=== PATIENT | male | born 1950 | race American Indian/Alaskan Native ===

== ENCOUNTER 2017-05-06 11:22 | Observation (INO) | payer MEDICARE ==
--- NOTE | 2017-05-06 13:06 | Emergency Department Report ---
Chief Complaint: Medical Clearance Stated Complaint: NEEDS A BLOOD TRANSFUSION Time Seen by Provider: 05/06/17 12:57 - HPI History of Present Illness: Pt is a 67 yo male who states he went a couple of days ago who stated he saw a Dr Burak Aponte who stated that his blood count is low and that he needed to get a blood transfusion. - ROS Review of Systems: ROS: other systems reviewed and neg except as noted per HPI - Exam Vital Signs: Vital Signs 05/06/17 11:25 Temperature 97.3 F L Pulse Rate 79 Respiratory 18 Rate Blood Pressure 129/78 O2 Sat by Pulse 100 Oximetry MSE screening note: Focused history and physical exam performed. Due to findings the following was ordered: Pt may need further management in the Ed by other subsequent providers as I provided a MSE exam . MD Elena ED Medical Decision Making - Lab Data Result diagrams: 05/07/17 13:23 05/07/17 13:23 ED Disposition for MSE Clinical Impression: Symptomatic anemia Disposition: DC-09 OP ADMIT IP TO THIS HOSP Condition: Stable
[2017-05-06 14:26] LABS: INR 1.06 (0.87-1.13)
[2017-05-06 14:35] LABS: Hematocrit 22.6 % (35.5-45.6); Hemoglobin 6.2 gm/dl (11.8-15.2); Mean Corpuscular HGB Conc 28 % (32-34); Mean Corpuscular Hemoglobin 13 pg (28-32); Mean Corpuscular Volume < 50 fl (84-94); Red Blood Count 4.64 M/mm3 (3.65-5.03); Red Cell Distribution Width 24.2 % (13.2-15.2)
[2017-05-06 14:54] LABS: BUN/Creatinine Ratio 12; Blood Urea Nitrogen 11 mg/dL (9-20); Calcium 9.5 mg/dL (8.4-10.2); Hemolysis Index 1
[2017-05-06 15:07] LABS: Basophils % (Manual) 0 % (0.0-1.8); Total Cells Counted 100
[2017-05-06 15:08] LABS: Anisocytosis 2+; Hypochromasia 2+; Poikilocytosis 2+
[2017-05-06 15:09] LABS: Acanthocytes Few; Schistocytes Few; Tear Drop Cells Few
[2017-05-06 15:10] LABS: Ovalocytes 1+
[2017-05-06 15:14] LABS: Burr Cells Rare
[2017-05-06 15:16] LABS: Target Cells 1+
[2017-05-06 15:23] LABS: Platelet Count 226 K/mm3 (140-440)
[2017-05-06 15:24] LABS: Basophils # (Auto) 0.1 K/mm3 (0.0-0.1); Basophils % (Auto) 3.1 % (0.0-1.8); Eosinophils # (Auto) 0.2 K/mm3 (0.0-0.4); Eosinophils % (Auto) 4.4 % (0.0-4.3); Lymphocytes # (Auto) 0.6 K/mm3 (1.2-5.4); Lymphocytes % (Auto) 14.1 % (13.4-35.0); Mean Platelet Volume 8.7 fl (6-12); Monocytes # (Auto) 0.5 K/mm3 (0.0-0.8); Monocytes % (Auto) 11.8 % (0.0-7.3)
[2017-05-06] MEDS ORDERED: NACL 0.9% 500 ML 500 ML IV ONE (20:15)
--- NOTE | 2017-05-06 20:20 | Emergency Department Report ---
HPI - General Chief Complaint: Medical Clearance Time Seen by Provider: 05/06/17 12:57 - HPI HPI: Room 7 The patient is a 67-year-old male presenting with a chief complaint of anemia. The patient states he had routine labs performed by his primary physician Dr. Aponte approximately 2-3 days ago. The patient was called yesterday and told to come to the hospital for blood transfusion. The patient states he was unable to come to the hospital yesterday but arrives today to receive his blood transfusion. The patient admits to having decreased energy and occasional shortness of breath/dyspnea on exertion for the past 4-5 months. Patient denies nausea/vomiting or chest pain. Patient denies bright red blood per rectum or melena. Location: Heme system Duration: [See above] Quality: Fatigue Severity: Moderate Modifying factors: [see above] Context: [see above] Mode of transportation: [not driving] ED Past Medical Hx - Past Medical History Hx Asthma: Yes - Surgical History Past Surgical History?: No - Family History Family history: no significant - Social History Smoking Status: Never Smoker Substance Use Type: None (denies illicit drug use) - Medications Home Medications: Home Medications Medication Instructions Recorded Confirmed Last Taken Type ALBUTEROL Inhaler [ProAir HFA 2 puff IH QID PRN #1 inhalation 04/05/16 Unknown Rx Inhaler] Fluticasone/Salmeterol [Advair 1 each IH BID #1 blst.w.dev 04/05/16 Unknown Rx 250-50 Diskus] ED Review of Systems ROS: Stated complaint: NEEDS A BLOOD TRANSFUSION Other details as noted in HPI Constitutional: malaise Respiratory: shortness of breath, SOB with exertion Cardiovascular: denies: chest pain Gastrointestinal: denies: abdominal pain, nausea, vomiting, melena, hematochezia Physical Exam - Physical Exam Vital Signs: Vital Signs 05/06/17 11:25 Temperature 97.3 F L Pulse Rate 79 Respiratory 18 Rate Blood Pressure 129/78 O2 Sat by Pulse 100 Oximetry Physical Exam: GENERAL: The patient is well-developed well-nourished male sitting on stretcher not appearing to be in acute distress. [] HEENT: Normocephalic. Patient has an approximately 8 cm diameter region of fluctuance to the left and poor region which she states has been there for 1 year. Extraocular motions are intact. Patient has moist mucous membranes. NECK: Supple. Trachea midline CHEST/LUNGS: Clear to auscultation. There is no respiratory distress noted. HEART/CARDIOVASCULAR: Regular. There is no tachycardia. There is no gallop rub or murmur. ABDOMEN: Abdomen is soft, nontender. Patient has normal bowel sounds. There is no abdominal distention. SKIN: There is no rash. There is no edema. There is no diaphoresis. NEURO: The patient is awake, alert, and oriented. The patient is cooperative. The patient has normal speech MUSCULOSKELETAL: There is no evidence of acute injury. RECTAL: Brown stool guaiac negative ED Course Vital Signs 05/06/17 11:25 Temperature 97.3 F L Pulse Rate 79 Respiratory 18 Rate Blood Pressure 129/78 O2 Sat by Pulse 100 Oximetry ED Medical Decision Making - Lab Data Result diagrams: 05/06/17 13:48 05/06/17 13:48 Laboratory Tests 05/06/17 05/06/17 05/06/17 13:48 13:48 13:48 WBC 4.2 L RBC 4.64 Hgb 6.2 L Hct 22.6 L MCV < 50 L MCH 13 L MCHC 28 L RDW 24.2 H Plt Count 226 Lymph % (Auto) 14.1 [place] % (Auto) 11.8 H Eos % (Auto) 4.4 H Baso % (Auto) 3.1 H Lymph # 0.6 L [place] # 0.5 Eos # 0.2 Baso # 0.1 Add Manual Diff Complete Total Counted 100 Seg Neutrophils % 66.6 Seg Neuts % (Manual) 67.0 Band Neutrophils % 0 Lymphocytes % (Manual) 23.0 Reactive Lymphs % (Man) 0 Monocytes % (Manual) 9.0 H Eosinophils % (Manual) 1.0 Basophils % (Manual) 0 Metamyelocytes % 0 Myelocytes % 0 Promyelocytes % 0 Blast Cells % 0 Nucleated RBC % Not Reportable Seg Neutrophils # 2.8 Seg Neutrophils # Man 2.8 Band Neutrophils # 0.0 Lymphocytes # (Manual) 1.0 L Abs React Lymphs (Man) 0.0 Monocytes # (Manual) 0.4 Eosinophils # (Manual) 0.0 Basophils # (Manual) 0.0 Metamyelocytes # 0.0 Myelocytes # 0.0 Promyelocytes # 0.0 Blast Cells # 0.0 WBC Morphology Not Reportable Hypersegmented Neuts Not Reportable Hyposegmented Neuts Not Reportable Hypogranular Neuts Not Reportable Smudge Cells Not Reportable Toxic Granulation Not Reportable Toxic Vacuolation Not Reportable Dohle Bodies Not Reportable Pelger-Huet Anomaly Not Reportable Marixa Rods Not Reportable Platelet Estimate Appears normal Clumped Platelets Not Reportable Plt Clumps, EDTA Not Reportable Large Platelets Not Reportable Giant Platelets Not Reportable Platelet Satelliting Not Reportable Plt Morphology Comment Not Reportable RBC Morphology Not Reportable Dimorphic RBCs Not Reportable Polychromasia Not Reportable Hypochromasia 2+ Poikilocytosis 2+ Anisocytosis 2+ Microcytosis 2+ Macrocytosis Not Reportable Spherocytes Not Reportable Pappenheimer Bodies Not Reportable Sickle Cells Not Reportable Target Cells 1+ Tear Drop Cells Few Ovalocytes 1+ Helmet Cells Not Reportable [place] Bodies Not Reportable [place] Rings Not Reportable [place]la Cells Rare Bite Cells Not Reportable Crenated Cell Not Reportable Elliptocytes Few Acanthocytes (Spur) Few Rouleaux Not Reportable Hemoglobin C Crystals Not Reportable Schistocytes Few Malaria parasites Not Reportable Jimbo Bodies Not Reportable Hem Pathologist Commnt No PT INR APTT Sodium 134 L Potassium 4.1 Chloride 94.7 L Carbon Dioxide 24 Anion Gap 19 BUN 11 Creatinine 0.9 Estimated GFR > 60 BUN/Creatinine Ratio 12 Glucose 98 Calcium 9.5 Blood Type A POSITIVE Antibody Screen Negative Crossmatch See Detail 05/06/17 13:48 WBC RBC Hgb Hct MCV MCH MCHC RDW Plt Count Lymph % (Auto) [place] % (Auto) Eos % (Auto) Baso % (Auto) Lymph # [place] # Eos # Baso # Add Manual Diff Total Counted Seg Neutrophils % Seg Neuts % (Manual) Band Neutrophils % Lymphocytes % (Manual) Reactive Lymphs % (Man) Monocytes % (Manual) Eosinophils % (Manual) Basophils % (Manual) Metamyelocytes % Myelocytes % Promyelocytes % Blast Cells % Nucleated RBC % Seg Neutrophils # Seg Neutrophils # Man Band Neutrophils # Lymphocytes # (Manual) Abs React Lymphs (Man) Monocytes # (Manual) Eosinophils # (Manual) Basophils # (Manual) Metamyelocytes # Myelocytes # Promyelocytes # Blast Cells # WBC Morphology Hypersegmented Neuts Hyposegmented Neuts Hypogranular Neuts Smudge Cells Toxic Granulation Toxic Vacuolation Dohle Bodies Pelger-Huet Anomaly Marixa Rods Platelet Estimate Clumped Platelets Plt Clumps, EDTA Large Platelets Giant Platelets Platelet Satelliting Plt Morphology Comment RBC Morphology Dimorphic RBCs Polychromasia Hypochromasia Poikilocytosis Anisocytosis Microcytosis Macrocytosis Spherocytes Pappenheimer Bodies Sickle Cells Target Cells Tear Drop Cells Ovalocytes Helmet Cells [place] Bodies Ransom Rings Shahla Cells Bite Cells Crenated Cell Elliptocytes Acanthocytes (Spur) Rouleaux Hemoglobin C Crystals Schistocytes Malaria parasites Jimbo Bodies Hem Pathologist Commnt PT 14.3 INR 1.06 APTT 31.0 Sodium Potassium Chloride Carbon Dioxide Anion Gap BUN Creatinine Estimated GFR BUN/Creatinine Ratio Glucose Calcium Blood Type Antibody Screen Crossmatch - Differential Diagnosis GI bleed, symptomatic anemia, Critical care attestation.: If time is entered above; I have spent that time in minutes in the direct care of this critically ill patient, excluding procedure time. ED Disposition Clinical Impression: Symptomatic anemia Disposition: 09 OP ADMIT IP TO THIS HOSP Is pt being admited?: Yes Does the pt Need Aspirin: No Condition: Fair Referrals: PRIMARY CARE, [Primary Care Provider] - 3-5 Days Time of Disposition: 20:20 (awaiting hospitalist)
[2017-05-06] MEDS ORDERED: MILK OF MAGNESIA PO PRN (21:58)
[2017-05-06] MEDS ORDERED: DULCOLAX PR PRN (21:58)
[2017-05-06] MEDS ORDERED: PERCOCET 5/325 PO PRN (21:58)
[2017-05-06] MEDS ORDERED: BENADRYL IV PRN (21:58)
[2017-05-06] MEDS ORDERED: ZOFRAN IV PRN (21:58)
[2017-05-06] MEDS ORDERED: TYLENOL PO PRN (21:58)
--- NOTE | 2017-05-06 22:01 | History and Physical Report ---
History of Present Illness Date of examination: 05/06/17 History of present illness: 67-year-old man with no medical problems when to do a physical 3 days ago and was told today to go to the emergency room for further evaluation because his blood count was low. He complains of generalized weakness, shortness of breath. He has never had a colonoscopy. Denies weight loss, black stool or blood in stool Review Of Systems: Constitutional: no weight loss Ears, eyes, nose, mouth and throat: no nasal congestion, no nasal discharge, no sinus pressure, blurry vision, diplopia Neck: No neck pain or rigidity. Cardiovascular: No chest pain, palpitations Respiratory: No cough Gastrointestinal: No abdominal pain, hematochezia Genitourinary : no dysuria, frequency , hematuria Musculoskeletal: no muscle ache Integumentary: no rash, no pruritis Neurological: no parathesias, focal weakness Endocrine: no cold or heat intolerance, no polyuria or polydipsia Hematologic/Lymphatic: no easy bruising, no easy bleeding, no gland swelling Allergic/Immunologic: no urticaria, no angioedema. PAST MEDICAL HISTORY: None PAST SURGICAL HISTORY:None FAMILY HISTORY: Hypertension SOCIAL HISTORY: Denies alcohol, tobacco, drugs Medications and Allergies Allergies Allergy/AdvReac Type Severity Reaction Status Date / Time No Known Allergies Allergy Verified 05/06/17 22:06 Home Medications Medication Instructions Recorded Confirmed Last Taken Type ALBUTEROL Inhaler [ProAir HFA 2 puff IH QID PRN #1 inhalation 04/05/16 Unknown Rx Inhaler] Fluticasone/Salmeterol [Advair 1 each IH BID #1 blst.w.dev 04/05/16 Unknown Rx 250-50 Diskus] Ascorbic Acid [Vitamin C] 500 mg PO BID #60 tablet 05/07/17 Unknown Rx Docusate Sodium [Colace] 100 mg PO BID #60 capsule 05/07/17 Unknown Rx Ferrous Sulfate [Feosol 325 MG tab] 325 mg PO TID #90 tablet 05/07/17 Unknown Rx Exam - Physical Exam Narrative exam: Gen. appearance: Patient lying in bed in no acute distress HEENT: Normocephalic/atraumatic, pupils equal round reactive to light, extra occular movement intact, no scleral icterus, no JVD or thyromegaly or nodule, neck is supple, mucous membrane moist, no erythema or exudate Heart: S1-S2, regular rate and rhythm Lungs: Clear to auscultation bilateral breathing comfortable Abdomen: Positive bowel sounds, nontender, nondistended, no organomegaly Extremities: No edema, cyanosis, clubbing Neuro:: Oriented 3 , cranial nerves II-12 intact, speech, motor intact Skin: No rash, nodules, warm dry Rectal: heme negative - Constitutional Vitals: Temp Pulse Resp BP Pulse Ox 97.3 F L 75 15 127/82 100 05/06/17 11:25 05/06/17 21:30 05/06/17 21:30 05/06/17 21:30 05/06/17 21:30 Results - Labs CBC & Chem 7: 05/07/17 13:23 05/07/17 13:23 Labs: Abnormal lab results 05/06/17 05/06/17 05/06/17 Range/Units 13:48 13:48 13:48 WBC 4.2 L (4.5-11.0) K/mm3 Hgb 6.2 L (11.8-15.2) gm/dl Hct 22.6 L (35.5-45.6) % MCV < 50 L (84-94) fl MCH 13 L (28-32) pg MCHC 28 L (32-34) % RDW 24.2 H (13.2-15.2) % [place] % (Auto) 11.8 H (0.0-7.3) % Eos % (Auto) 4.4 H (0.0-4.3) % Baso % (Auto) 3.1 H (0.0-1.8) % Lymph # 0.6 L (1.2-5.4) K/mm3 Monocytes % (Manual) 9.0 H (0.0-7.3) % Lymphocytes # (Manual) 1.0 L (1.2-5.4) K/mm3 Sodium 134 L (137-145) mmol/L Chloride 94.7 L (98-107) mmol/L Crossmatch See Detail Assessment and Plan Assessment Symptomatic anemia Plan Transfuse packed red blood cells, check iron studies DVT prophylaxis
[2017-05-07] MEDS ORDERED: NACL 0.9% 500 ML 500 ML ONE (02:08)
[2017-05-07] MEDS ORDERED: CLARITIN-D 24HR PO SCH (04:00)
--- NOTE | 2017-05-07 13:18 | Progress Note ---
Assessment and Plan Assessment and plan: Patient is a 67-year-old man with a history of asthma presented with fatigue and report of low blood count. He was negative FOBT per ED physician physical exam note. -Acute symptomatic anemia of chronic disease, MCV is less than 50 which severely low; he may have thalassemia with iron deficiency or malignancy related : We'll transfer 2 units of blood and if his hemoglobin greater than 7.0, he can be discharged, cconsult hematology, patient said he had a negative colonoscopy about 10 years ago. -Severe microcytosis (lowest I have ever seen): Needs outpatient workup, i.e. hemoglobin electrophoresis -Asthma stable. History Interval history: Patient was seen and examined. Follow-up on current diagnosis of weakness which has resolved. Overnight uneventful. Patient denies any chest pain, shortness breath, nausea/vomiting or severe headaches. Imaging, nursing note, chart, labs and old chart reviewed. Discussed with patient. 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 Hospitalist Physical - Physical exam Narrative exam: GEN: WDWN, NAD, AWAKE, ALERT, ORIENTATED HEENT: NCAT except large left bahai lipoma like mass, EOMI, PERRL, OP Clear NECK: supple, no adenopathy, no thyromegaly, no JVD CVS/HEART: RRR, NORMAL S1S2, pulses present bilaterally CHEST/LUNGS: CTA B, Symmetrical chest expansion, good air entry bilaterally GI/Abdomen: soft, NTND, good bowel sounds, no guarding or rebound /Bladder: no suprapubic tenderness, no CVA or paraspinal tenderness EXT/Skin: no c/c/e, no obvious rash MSK: FROM x 4 Neuro: CN 2-12 grossly intact, no new focal deficits Psych: calm - Constitutional Vitals: Temp Pulse Resp BP Pulse Ox 97.8 F 66 16 130/87 100 05/07/17 10:05 05/07/17 10:05 05/07/17 10:05 05/07/17 10:05 05/07/17 10:05 Results - Labs CBC & Chem 7: 05/06/17 13:48 05/06/17 13:48 Labs: Laboratory Last Values WBC 4.2 K/mm3 (4.5-11.0) L 05/06/17 13:48 RBC 4.64 M/mm3 (3.65-5.03) 05/06/17 13:48 Hgb 6.2 gm/dl (11.8-15.2) L 05/06/17 13:48 Hct 22.6 % (35.5-45.6) L 05/06/17 13:48 MCV < 50 fl (84-94) L 05/06/17 13:48 MCH 13 pg (28-32) L 05/06/17 13:48 MCHC 28 % (32-34) L 05/06/17 13:48 RDW 24.2 % (13.2-15.2) H 05/06/17 13:48 Plt Count 226 K/mm3 (140-440) 05/06/17 13:48 Lymph % (Auto) 14.1 % (13.4-35.0) 05/06/17 13:48 [place] % (Auto) 11.8 % (0.0-7.3) H 05/06/17 13:48 Eos % (Auto) 4.4 % (0.0-4.3) H 05/06/17 13:48 Baso % (Auto) 3.1 % (0.0-1.8) H 05/06/17 13:48 Lymph # 0.6 K/mm3 (1.2-5.4) L 05/06/17 13:48 [place] # 0.5 K/mm3 (0.0-0.8) 05/06/17 13:48 Eos # 0.2 K/mm3 (0.0-0.4) 05/06/17 13:48 Baso # 0.1 K/mm3 (0.0-0.1) 05/06/17 13:48 Add Manual Diff Complete 05/06/17 13:48 Total Counted 100 05/06/17 13:48 Seg Neutrophils % 66.6 % (40.0-70.0) 05/06/17 13:48 Seg Neuts % (Manual) 67.0 % (40.0-70.0) 05/06/17 13:48 Band Neutrophils % 0 % 05/06/17 13:48 Lymphocytes % (Manual) 23.0 % (13.4-35.0) 05/06/17 13:48 Reactive Lymphs % (Man) 0 % 05/06/17 13:48 Monocytes % (Manual) 9.0 % (0.0-7.3) H 05/06/17 13:48 Eosinophils % (Manual) 1.0 % (0.0-4.3) 05/06/17 13:48 Basophils % (Manual) 0 % (0.0-1.8) 05/06/17 13:48 Metamyelocytes % 0 % 05/06/17 13:48 Myelocytes % 0 % 05/06/17 13:48 Promyelocytes % 0 % 05/06/17 13:48 Blast Cells % 0 % 05/06/17 13:48 Nucleated RBC % Not Reportable 05/06/17 13:48 Seg Neutrophils # 2.8 K/mm3 (1.8-7.7) 05/06/17 13:48 Seg Neutrophils # Man 2.8 K/mm3 (1.8-7.7) 05/06/17 13:48 Band Neutrophils # 0.0 K/mm3 05/06/17 13:48 Lymphocytes # (Manual) 1.0 K/mm3 (1.2-5.4) L 05/06/17 13:48 Abs React Lymphs (Man) 0.0 K/mm3 05/06/17 13:48 Monocytes # (Manual) 0.4 K/mm3 (0.0-0.8) 05/06/17 13:48 Eosinophils # (Manual) 0.0 K/mm3 (0.0-0.4) 05/06/17 13:48 Basophils # (Manual) 0.0 K/mm3 (0.0-0.1) 05/06/17 13:48 Metamyelocytes # 0.0 K/mm3 05/06/17 13:48 Myelocytes # 0.0 K/mm3 05/06/17 13:48 Promyelocytes # 0.0 K/mm3 05/06/17 13:48 Blast Cells # 0.0 K/mm3 05/06/17 13:48 WBC Morphology Not Reportable 05/06/17 13:48 Hypersegmented Neuts Not Reportable 05/06/17 13:48 Hyposegmented Neuts Not Reportable 05/06/17 13:48 Hypogranular Neuts Not Reportable 05/06/17 13:48 Smudge Cells Not Reportable 05/06/17 13:48 Toxic Granulation Not Reportable 05/06/17 13:48 Toxic Vacuolation Not Reportable 05/06/17 13:48 Dohle Bodies Not Reportable 05/06/17 13:48 Pelger-Huet Anomaly Not Reportable 05/06/17 13:48 Marixa Rods Not Reportable 05/06/17 13:48 Platelet Estimate Appears normal 05/06/17 13:48 Clumped Platelets Not Reportable 05/06/17 13:48 Plt Clumps, EDTA Not Reportable 05/06/17 13:48 Large Platelets Not Reportable 05/06/17 13:48 Giant Platelets Not Reportable 05/06/17 13:48 Platelet Satelliting Not Reportable 05/06/17 13:48 Plt Morphology Comment Not Reportable 05/06/17 13:48 RBC Morphology Not Reportable 05/06/17 13:48 Dimorphic RBCs Not Reportable 05/06/17 13:48 Polychromasia Not Reportable 05/06/17 13:48 Hypochromasia 2+ 05/06/17 13:48 Poikilocytosis 2+ 05/06/17 13:48 Anisocytosis 2+ 05/06/17 13:48 Microcytosis 2+ 05/06/17 13:48 Macrocytosis Not Reportable 05/06/17 13:48 Spherocytes Not Reportable 05/06/17 13:48 Pappenheimer Bodies Not Reportable 05/06/17 13:48 Sickle Cells Not Reportable 05/06/17 13:48 Target Cells 1+ 05/06/17 13:48 Tear Drop Cells Few 05/06/17 13:48 Ovalocytes 1+ 05/06/17 13:48 Helmet Cells Not Reportable 05/06/17 13:48 [place] Bodies Not Reportable 05/06/17 13:48 [place] Rings Not Reportable 05/06/17 13:48 [place] Cells Rare 05/06/17 13:48 Bite Cells Not Reportable 05/06/17 13:48 Crenated Cell Not Reportable 05/06/17 13:48 Elliptocytes Few 05/06/17 13:48 Acanthocytes (Spur) Few 05/06/17 13:48 Rouleaux Not Reportable 05/06/17 13:48 Hemoglobin C Crystals Not Reportable 05/06/17 13:48 Schistocytes Few 05/06/17 13:48 Malaria parasites Not Reportable 05/06/17 13:48 Jimbo Bodies Not Reportable 05/06/17 13:48 Hem Pathologist Commnt No 05/06/17 13:48 PT 14.3 Sec. (12.2-14.9) 05/06/17 13:48 INR 1.06 (0.87-1.13) 05/06/17 13:48 APTT 31.0 Sec. (24.2-36.6) 05/06/17 13:48 Sodium 134 mmol/L (137-145) L 05/06/17 13:48 Potassium 4.1 mmol/L (3.6-5.0) 05/06/17 13:48 Chloride 94.7 mmol/L (98-107) L 05/06/17 13:48 Carbon Dioxide 24 mmol/L (22-30) 05/06/17 13:48 Anion Gap 19 mmol/L 05/06/17 13:48 BUN 11 mg/dL (9-20) 05/06/17 13:48 Creatinine 0.9 mg/dL (0.8-1.5) 05/06/17 13:48 Estimated GFR > 60 ml/min 05/06/17 13:48 BUN/Creatinine Ratio 12 % 05/06/17 13:48 Glucose 98 mg/dL (75-100) 05/06/17 13:48 Calcium 9.5 mg/dL (8.4-10.2) 05/06/17 13:48 Blood Type A POSITIVE 05/06/17 13:48 Antibody Screen Negative 05/06/17 13:48 Crossmatch See Detail 05/06/17 13:48
--- NOTE | 2017-05-07 13:23 | Discharge Summary ---
Providers - Providers Date of Admission: 05/06/17 21:58 Date of discharge: 05/07/17 Attending physician: VIKKI DIEZ Primary care physician: GRADUATE STUDENT INSTRUCTOR Hospitalization Condition: Stable Hospital course: Patient is a 67-year-old man with a history of asthma presented with fatigue and report of low blood count. He was negative FOBT per ED physician physical exam note. -Acute symptomatic anemia of chronic disease, MCV is less than 50 which severely low; he may have thalassemia with iron deficiency or malignancy related : We'll transfer 2 units of blood and if his hemoglobin greater than 7.0, he can be discharged, cconsult hematology, patient said he had a negative colonoscopy about 10 years ago. -Severe microcytosis (lowest I have ever seen): Needs outpatient workup, i.e. hemoglobin electrophoresis -Asthma stable. Disposition: DC-01 TO HOME OR SELFCARE Time spent for discharge: 35 mintues Core Measure Documentation - Palliative Care Palliative Care/ Comfort Measures: Not Applicable - Core Measures Any of the following diagnoses?: none - VTE Discharge Requirements Deep Vein Thrombosis/Pulmonary Embolism Present on Admission: No Has pt received <5 days of overlap therapy or INR<2.0: No Anticoagulant overlap therapy prescribed at discharge: No Contraindication No Overlap Therapy order at DC: Not Indicated Exam - Physical Exam Narrative exam: GEN: WDWN, NAD, AWAKE, ALERT, ORIENTATED HEENT: NCAT except large left congregational lipoma like mass, EOMI, PERRL, OP Clear NECK: supple, no adenopathy, no thyromegaly, no JVD CVS/HEART: RRR, NORMAL S1S2, pulses present bilaterally CHEST/LUNGS: CTA B, Symmetrical chest expansion, good air entry bilaterally GI/Abdomen: soft, NTND, good bowel sounds, no guarding or rebound /Bladder: no suprapubic tenderness, no CVA or paraspinal tenderness EXT/Skin: no c/c/e, no obvious rash MSK: FROM x 4 Neuro: CN 2-12 grossly intact, no new focal deficits Psych: calm - Constitutional Vitals: Temp Pulse Resp BP Pulse Ox 97.8 F 66 16 130/87 100 05/07/17 10:05 05/07/17 10:05 05/07/17 10:05 05/07/17 10:05 05/07/17 10:05 Plan Activity: other (no strenous activity until cleared by Lead Data Entry Operator) Diet: regular Follow up with: PRIMARY CARE, [Primary Care Provider] - 3-5 Days LAST GAMING DO [Staff Physician] - 7 Days Prescriptions: Ascorbic Acid [Vitamin C] 500 mg PO BID #60 tablet Docusate Sodium [Colace] 100 mg PO BID #60 capsule Ferrous Sulfate [Feosol 325 MG tab] 325 mg PO TID #90 tablet
[2017-05-07 14:01] LABS: Hematocrit 30.3 % (35.5-45.6); Mean Corpuscular HGB Conc 30 % (32-34); Mean Corpuscular Hemoglobin 17 pg (28-32); Mean Corpuscular Volume 57 fl (84-94); Red Blood Count 5.37 M/mm3 (3.65-5.03)
[2017-05-07 14:02] LABS: Red Cell Distribution Width 37.8 % (13.2-15.2)
[2017-05-07 14:14] LABS: BUN/Creatinine Ratio 13; Blood Urea Nitrogen 9 mg/dL (9-20); Hemolysis Index 4
[2017-05-07 14:22] VITALS: BP 154/87
[2017-05-07 14:46] LABS: Total Cells Counted 100
[2017-05-07 14:47] LABS: Anisocytosis 2+; Hypochromasia 3+; Ovalocytes Few; Poikilocytosis 2+; Target Cells Few
[2017-05-07 14:48] LABS: Acanthocytes 1+; Schistocytes Few; Tear Drop Cells Few
[2017-05-07 14:49] LABS: Large Platelets Few; Platelet Count 156 K/mm3 (140-440); Platelet Estimate Cons
--- NOTE | 2017-05-10 10:15 | Query- General ---
Steve Quiroz____Harrison Date:___05/10/17 Manager Instrumentation/CDS:____Lena / Kasi Phone#:___[phone] Exercise your independent professional judgment when responding to this query. Questions asked do not imply a particular answer is desired or expected. We greatly appreciate your clarification on this issue. Clinical Documentation States: 67 year old male was admitted on 05/06/17 The discharge summary (Dr. Terry) states " Hospital course: Patient is a 67-year-old man with a history of asthma presented with fatigue and report of low blood count. He was negative FOBT per ED physician physical exam note. -Acute symptomatic anemia of chronic disease, MCV is less than 50 which severely low; he may have thalassemia with iron deficiency or malignancy related : " Given the above clinical scenario can you please provide an appropriate diagnosis based on your knowledge of the patient: PHYSICIAN RESPONSE: Etiology of anemia : ____Anemia of chronic disease Present on Admission: [x ] Yes (Y) [ ] Clinically undeterminable (W) [ ]No(N) Please also document response in your Progress Notes and/or Discharge Summary and indicate if the condition was present on admission. MTDD
== END 2017-05-07 15:46 | disposition home or self-care (01) ==
LOC: ED 11:22 → 4A 21:58 → INTOOBSV 21:58 → 4A 23:15
PROVIDERS: ADMIT Internal Medicine; ATTEND Internal Medicine
PROC: 30233N1 Transfusion of Nonautologous Red Blood Cells into Peripheral Vein, Percutaneous Approach (ICD-10-PCS; principal; 2017-05-07)
DX: D64.9 Anemia, unspecified (principal); Z82.49 Family history of ischemic heart disease and other diseases of the circulatory system; Z79.899 Other long term (current) drug therapy
CPT/HCPCS: 36415; 36430; 80048; 82271; 85007; 85025; 85610; 85730; 86850; 86900; 86901; 86920; 96360; 99285; G0378; J7040; P9016